=== PATIENT | male | born 1975 | race Caucasian/White ===

== ENCOUNTER 2017-05-18 15:14 | Emergency (ER) | payer SELFPAY ==
[2017-05-18] MEDS ORDERED: TORAdol 30 mg Injection IM ONE (16:24)
[2017-05-18] MEDS ORDERED: TORAdol 30 mg Injection ONE (16:27)
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
[2017-05-18] MEDS ORDERED: TORAdol 30 mg Injection IV ONE (16:32)
[2017-05-18] MEDS ORDERED: MORPHINE SULFATE 4 MG INJ IV ONE (17:05)
[2017-05-18] MEDS ORDERED: MORPHINE SULFATE 4 MG INJ ONE (17:07)
[2017-05-18 17:15] LABS: BASOPHIL % 0.3 % (0.0-0.4); Eosinophil % 6.5 % (0.00-5.0); Granulocytes % 60.1 % (36.0-66.0); Lymphocytes % 24.4 % (24.0-44.0); Mean Cell Volume 86.8 fl (78-100); Mean Corpuscular Hemoglobin 29.6 pg (26-32); Mean Platelet Volume 10.9 fl (6-9.5); Monocytes % 8.7 % (0.0-12.0); Platelet Count 284 K/mm3 (150-450); Red Blood Count 5.31 M/mm3 (4.1-5.6); Red Cell Distribution Width 13.7 % (11.5-14.0)
[2017-05-18 17:50] LABS: ALBUMIN 3.7 g/dL (3.4-5.0); ALKALINE PHOSPHATASE 48 U/L (46-116); ANION GAP 10.6 MEQ/L (5-15); BLOOD UREA NITROGEN 12 mg/dL (9-20); CHLORIDE 107 mEq/L (98-107); Carbon Dioxide 28.6 mEq/L (21-32); Glucose 96 MG/DL (70-110); LIPASE 168 U/L (73-393); Potassium 4.9 mEq/L (3.5-5.1); SGOT/AST 19 U/L (15-37); SGPT/ALT 36 U/L (12-78); SODIUM 141 mEq/L (136-145); Total Protein 6.9 gm/dL (6.4-8.2)
[2017-05-18 19:13] VITALS: BP 121/77; PULSE 60; O2SAT 99
--- NOTE | 2017-05-20 16:00 | XRAY ---
Exam: CT of the abdomen and pelvis without IV contrast from 05/18/2017. CTDI: 23.02 Comparison: None. Indication: Pain within left flank radiating to left abdomen. Technique: Non-IV contrast axial images were obtained through the abdomen and pelvis. Reconstructed coronal and sagittal images were created and reviewed. Findings: There is moderate elevation of the posterior aspect of the left hemidiaphragm, probably due to eventration of this portion of the left hemidiaphragm. The lung bases are essentially clear. 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 This appears to involve at least the left eighth through 11th ribs posterolaterally. Correlate clinically. The kidneys are unremarkable size and shape. No renal calculi or hydronephrosis is seen. The ureters are of normal diameter and reveal no ureterolith. The urinary bladder is distended and reveals no bladder stone. No bladder wall thickening is seen. Assessment of the solid organs is limited without the use of IV contrast. The liver and spleen appear unremarkable. No intrahepatic biliary duct distention is seen. The gallbladder is distended and reveals no dense calcifications within it. The pancreas and adrenal glands appear normal. No abdominal aortic aneurysm or abnormal retroperitoneal lymphadenopathy is seen. There is no free air or ventral abdominal wall hernia. There is some minimal hazy density within the left abdominal mesentery. This is relatively nonspecific. 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 No abnormal bowel distention or obstruction is seen. Some scattered colonic stool is seen. I see no findings to suggest appendicitis. Mild descending colon diverticulosis without evidence of diverticulitis is seen. Pelvic lymph nodes are not enlarged. There is no free fluid within the pelvis. The seminal vesicles appear unremarkable. The prostate gland measures 5.0 cm in width and 3.7 cm in AP depth is borderline enlarged. Correlate clinically. The deep pelvic sidewalls appear unremarkable. No abnormal adenopathy is seen within either groin. Skeleton reveals no acute fracture or aggressive bone lesion. Impression: 1. I see no evidence of renal/ureteral stones, hydronephrosis/hydroureter, or other evidence of acute obstructive uropathy. No urinary bladder stone is seen. 2. 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 There are also appears to be several old ununited lower left rib fracture deformities posterolaterally. Correlate with history. 3. Borderline enlargement of the prostate gland. Clinical correlation with digital rectal rectal exam and PSA is recommended. 4. Minimal hazy density is seen within the left abdominal mesentery. Significance is unclear. 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 5. Normal appendix.
== END 2017-05-18 19:14 | disposition home or self-care (01) ==
LOC: ED 15:14
DX: M54.6 Pain in thoracic spine (principal); S29.019A Strain of muscle and tendon of unspecified wall of thorax, initial encounter; R10.84 Generalized abdominal pain; R93.5 Abnormal findings on diagnostic imaging of other abdominal regions, including retroperitoneum; X50.0XXA Overexertion from strenuous movement or load, initial encounter
CPT/HCPCS: 36000; 36415; 74176; 80053; 82150; 83690; 85025; 96374; 96375; 99284; J1885; J2270